=== PATIENT | female | born 1985 | race Caucasian/White ===

== ENCOUNTER 2017-11-09 08:40 | Day surgery (SDC) | payer OTHER ==
[~2017-11-09] VITALS: Ht 160 cm; Wt 76.4 kg
[~2017-11-09 08:40] MED LIST: RINGERS SOLUTION,LACTATED 1,000 ML IV ONE
[2017-11-09] MEDS ORDERED: CeFAZolin 2 GM/DEXTROSE 50 ML IV ONE ×2 (08:45→09:00)
[2017-11-09] MEDS ORDERED: RINGERS SOLUTION,LACTATED 1,000 ML IV ONE (08:46)
[2017-11-09] MEDS ORDERED: LIDOCAINE HCL 1%/EPI 1:200,000/PF 30 ML VIAL ONE (08:56)
[2017-11-09] MEDS ORDERED: BUPIVACAINE HCL/PF 0.5% 30 ML VIAL ONE (08:57)
[2017-11-09 09:31] LABS: ANION GAP 8 mmol/L (8-16); CALCIUM, TOTAL 8.5 mg/dL (8.8-10.5); CARBON DIOXIDE 28 mmol/L (22-29); CHLORIDE 103 mmol/L (98-107); CREATININE 0.66 mg/dL (0.60-1.30); GLOMERULAR FILTR. RATE CALC > 60 mL/min (>60); GLUCOSE,RANDOM 81 mg/dL (70-110); POTASSIUM 4.1 mmol/L (3.5-5.1); SODIUM SERUM 139 mmol/L (136-145); UREA NITROGEN, BLOOD 10 mg/dL (7-18)
[2017-11-09] MEDS ORDERED: IBUPROFEN 800 MG TABLET PO PRN (10:30)
[2017-11-09] MEDS ORDERED: ACETAMINOPHEN 500 MG TABLET PO PRN (10:30)
[2017-11-09] MEDS ORDERED: MEPERIDINE HCL/PF 25 MG/0.5 ML AMP IVP PRN (10:45)
[2017-11-09] MEDS ORDERED: OXYGEN THERAPY IH SCH (10:45)
[2017-11-09] MEDS ORDERED: FentaNYL CITRATE-PF 100 MCG/2 ML VIAL IVP PRN (10:45)
[2017-11-09] MEDS ORDERED: HYDROmorphone 2 MG/ML SYRINGE ONE (10:47)
[2017-11-09] MEDS: HYDROmorphone 2 MG/ML SYRINGE IVP PRN ×2 (10:51→11:01)
[2017-11-09] MEDS ORDERED: FentaNYL CITRATE-PF 100 MCG/2 ML VIAL IVP ONE (12:00)
[2017-11-09] MEDS ORDERED: MIDAZOLAM HCL 2 MG/2 ML VIAL IVP ONE (12:00)
== END 2017-11-09 12:15 | disposition home or self-care (01) ==
LOC: SURGERY 08:40
PROVIDERS: ATTEND Surgery
DX: D17.1 Benign lipomatous neoplasm of skin and subcutaneous tissue of trunk (principal); Z98.51 Tubal ligation status; Z72.89 Other problems related to lifestyle; Z98.890 Other specified postprocedural states; Z83.3 Family history of diabetes mellitus
CPT/HCPCS: 21933; 36415; 80048; 88304; J0690; J1170; J2250; J3010; J3490 ×2; J7120